=== PATIENT | female | born 1995 | race African-American/Black ===

== ENCOUNTER 2021-05-07 11:35 | Emergency (ER) | payer MEDICAID ==
[~2021-05-07] VITALS: Ht 165.1 cm; Wt 58.0 kg
[2021-05-07] MEDS ORDERED: LORAZEPAM 1MG TABLET PO ONE (12:30)
[2021-05-07 12:45] LABS: *BARBITURATES SCREEN URINE NEGATIVE (NEGATIVE); *BENZODIAZEPINES SCREEN URINE NEGATIVE (NEGATIVE); *COCAINE SCREEN URINE NEGATIVE (NEGATIVE); METHADONE URINE SCREEN NEGATIVE (NEGATIVE)
[2021-05-07 12:46] LABS: *AMPHETAMINES SCREEN URINE PRESUMTIVE POSITIVE (NEGATIVE); CANNABINOID URINE SCREEN PRESUMTIVE POSITIVE (NEGATIVE); OPIATES URINE SCREEN NEGATIVE (NEGATIVE); PHENCYCLIDINE URINE SCREEN NEGATIVE (NEGATIVE)
[2021-05-07] MEDS ORDERED: LORA-250 MT (13:10)
[2021-05-07 14:18] VITALS: BP 130/81
== END 2021-05-07 14:18 | disposition home or self-care (01) ==
LOC: ER 11:52
DX: F15.180 Other stimulant abuse with stimulant-induced anxiety disorder (principal); F15.129 Other stimulant abuse with intoxication, unspecified; F15.182 Other stimulant abuse with stimulant-induced sleep disorder; Z71.51 Drug abuse counseling and surveillance of drug abuser; R03.0 Elevated blood-pressure reading, without diagnosis of hypertension
CPT/HCPCS: 80305; 81025; 99283